=== PATIENT | male | born 1965 | race Caucasian/White ===

== ENCOUNTER 2020-01-22 18:34 | IRF | payer BC, SELFPAY ==
--- NOTE | ~2020-01-22 | XR_ITS ---
EXAMINATION: XR forearm LT 2V DATE: 01/25/2020 22:28 INDICATION: Posterior distal left forearm pain post fall TECHNIQUE: AP an lateral views of the left forearm were obtained. COMPARISON: none FINDINGS: Alignment is normal. No fracture. Joint spaces are normal. Enthesophyte at the olecranon. Soft tissue s are unremarkable. Left elbow joint effusion. IMPRESSION: 1. Negative left forearm radiographs. Reviewed, dictated and finalized at location A.
--- NOTE | 2020-01-22 19:19 | ADMGEN ---
This patient, Florentin Marie, was admitted to [facility] Room 221-01. Patient/family oriented to hospital policies and general routines including ID bracelet, bed and alarms, visiting hours, pain management, procedures, bathroom and other care routines, personal items, smoking policy, room service/diet, and visiting hours. Information on how to activate the Rapid Response Team has been discussed. Patient/Family are encouraged to report perceived risks to care and to ask questions if they do not understand what they are told or what they should do. 183 Patient arrived via ambulance, he is alert and oriented, daughter here. v/s on trip 135/81, p92 r18 sats 100%, ems reported he ate dinner but at present he states he is hungry, given cold sandwich tray
[2020-01-22 20:12] VITALS: BP 132/86; PULSE 94; RESP 18; TEMP 36.6; O2SAT 98
[2020-01-22 20:46] VITALS: BMI 50.9
[2020-01-22] MEDS: ATORVASTATIN 40 MG TABLET 80 MG PO (22:27)
[2020-01-23 05:08] LABS: Basophils Absolute Auto 0.1 K/mm3 (0.0-0.1); Basophils Percent Auto 0.5 % (0.2-1.2); Eosinophils Absolute Auto 0.3 K/mm3 (0-0.3); Hematocrit 44.8 % (42.0-52.0); Hemoglobin 15.6 g/dL (14.0-18.0); Immature Granulocyte Absolute 0.08 K/mm3 (0.00-0.031); Immature Granulocyte Percent A 0.6 % (0-0.5); Lymphocytes Absolute Auto 2.77 K/mm3 (0.9-3.2); Lymphocytes Percent Auto 20.1 % (18.3-44.2); Mean Corpuscular HGB Conc 34.8 g/dl (32-36); Mean Corpuscular Hemoglobin 30.4 pg (26-34); Mean Corpuscular Volume 87.2 fl (80-100); Mean Platelet Volume 10.6 fl (7.4-10.4); Monocytes Absolute Auto 1.5 K/mm3 (0.1-0.6); Monocytes Percent Auto 10.6 % (2.6-8.5); Neutrophils Absolute Auto 9.1 K/mm3 (1.3-6.7); Neutrophils Percent Auto 66.2 % (45.5-73.1); Platelet Count Result 258 k/mm3 (150-375); Red Blood Count 5.14 M/mm3 (4.6-6.20); Red Cell Distribution Width 11.9 % (11.5-14.5); White Blood Count 13.8 K/mm3 (4.5-10.0)
[2020-01-23 05:25] LABS: Anion Gap 9 mmol/L (8-16); Blood Urea Nitrogen 17 mg/dL (9-20); Calcium 8.9 mg/dL (8.4-10.2); Carbon Dioxide 26 mmol/L (22-30); Chloride 104 mmol/L (98-107); Cholesterol 149 mg/dL (0-200); Estimated CRCL calculation 156 ml/min; Estimated Glomerular Filt Rate > 60; Glucose 110 mg/dL (75-110); HDL Direct 36 mg/dL; Potassium 4.3 mmol/L (3.4-5.0); Sodium 139 mmol/L (137-145); Triglycerides 162 mg/dL (<150)
[2020-01-23 05:30] VITALS: BP 108/58; PULSE 76; RESP 18; TEMP 36.6; O2SAT 100
[2020-01-23 05:36] LABS: LDL Cholesterol Direct 91 mg/dL
[2020-01-23] MEDS: ASPIRIN 325 MG ENTERIC TABLET PO (09:32)
[2020-01-23] MEDS: NICOTINE (*PBKC) 21 MG PATCH 1 PATCH TRANSDERM (09:32)
[2020-01-23 09:40] VITALS: PULSE 100; RESP 18; O2SAT 97
[2020-01-23] MEDS: ENOXAPARIN 40 MG/0.4 ML SYRINGE SUB-Q (09:55)
--- NOTE | 2020-01-23 11:00 | PM.IMHP ---
H&P: HPI History of Present Illness Date/Time: 01/23/20 13:33 Chief complaint: Acute CVA Narrative: Florentin Marie is a 54 year old male who is right-handed is admitted Because of the stroke, a right acute hemispheric infarction with left-sided hemiparesis upper extremity much more involved than the lower extremity The patient is a 54-year-old right-handed white male with a past medical history of ureteral lithiasis who presented to [facility] on January 17, 2020 after developing profound left upper extremity weakness mild left lower extremity weakness numbness and tingling to the left side and slurring of the speech. The patient felt a pop on the left side of his neck while doing heavy lifting at work earlier in the day when his symptoms began. Head CT revealed fighting concerning for an acute to subacute infarction in the right middle cerebral artery distribution. Urine drug screen was positive for opioids and methamphetamine all the patient reported not using for years. CT of the cervical spine demonstrated no acute osseous abnormality and mild spondylosis of the cervical spine. X-ray of the left shoulder showed an osseous abnormality and mild acromioclavicular joint osteoarthritis. The patient was given aspirin and transferred to [facility] for further evaluation and treatment. Neurology was consulted and ordered MRI MRA and carotid duplex. MRI was positive for an acute right hemispheric infarction without hemorrhage or significant mass effect. Carotid duplex showed evidence of complete occlusion of the right internal carotid artery and minimal atherosclerotic plaque on the left. Carotid MRA demonstrated very minimal flow within the right internal carotid artery and an essentially functional occlusion of the cervical right carotid artery. Neurology continue the patient on aspirin and introduced a high-intensity statin therapy. Physical examination continues to reveal left-sided weakness, dysarthria with very mild left facial droop and leftward tongue deviation decreased gross motor control impaired balance and decreased safety awareness. He was diagnosed with pre diabetes with hemoglobin A1c of 6.0. The patient is discharged to us on Lovenox for DVT prophylaxis and should continue on this therapy until ambulating proficient Nevaeh reynolds. The patient to follow up with the outpatient vascular neurology after discharge. The patient has not traveled outside the [place] contact with someone who is ill that has traveled outside the use in the past 21 days. The patient has not traveled to an area of the stent is experiencing no transmission of the Coronavirus and has not had close personal contact with anyone that has. Patient does not have fever. The patient is not experiencing lower respiratory symptoms The therapies were initiated at the acute care facility and the patient was transferred to us from [facility] on January 22, 2020 The patient has had no major surgery in the 100 days. Patient has had no falls in the past year. The patient has had no falls with injury in the past year. Past medical history ureteral lithiasis Past surgical history knee surgery Social history, current smoker, used to drink heavily but reportedly has not had a drink and years. He reported no other drugs or supplements. Family history father had stroke brother had stroke prior level of function Prior level function was quite independent in all spheres of activities daily living Current level functions as follows eating is independent, oral care is partial moderate, toileting hygiene is partial moderate, shower bath is partial moderate, upper body supervision, lower bodies partial moderate, footwear is partial moderate, groaning left and right supervision, sit to lying supervision, lying to sitting supervision, [id number] is partial moderate, bed to chair transfers partial moderate, toilet transfers are parti
[2020-01-23 14:00] VITALS: BP 133/75; PULSE 104; RESP 18; TEMP 36.9; O2SAT 98
[2020-01-23 14:15] VITALS: BMI 23.1
[2020-01-23] MEDS: IBUPROFEN 600 MG TABLET PO ×2 (14:35→18:26)
--- NOTE | 2020-01-23 15:27 | RPD ---
INDIVIDUALIZED PLAN OF CARE FOR Florentin Marie Brief Synthesis of Pre-Admission Screen, Post-Admission Evaluation and Therapy Evaluations: The patient presents to rehab with bifrontal acute on chronic bilateral subdural hematoma s/p subdural evacuation. Comorbidities include S/P Sheri holes/evacuation, subdural bleed, allergic rhinitis, benign prostatic hypertrophy, cerebral ventriculomegaly, elevated PSA, hypertension, gastroesophageal reflux disease, gait difficulty, hyperlipidemia, lower back pain, normal pressure hydrocephalus, persistent headaches, pneumocephalus, rectus diastasis, s/p ventriculoperitoneal shunt, type 2 diabetes mellitus, recurrent vasovagal syncope, ventricular premature depolarization, arthritis, obesity, hyponatremia, acute kidney injury related to ATN with episodic hypotension, hyperkalemia, anemia, SIADH, leukocytosis. The patient needs physician monitoring and treatment for postoperative complications of leukocytosis, anemia, acute kidney injury related to ATN with episodic hypotension, headaches, post-operative pain, hypertension, hyponatremia, hyperkalemia, post-operative anemia, monitoring for adverse reactions to new medications, monitoring of infection, and pain control. The patient requires nursing services for frequent neuro checks, anticoagulation therapy, medication management and education, pressure relief and skin care management, monitoring of labs, diabetes management and education, and fall/safety precautions. Deficits include:ADLs, Balance, Endurance,Mobility, Pain Management, ROM, Safety, Strength,Transfers Batt Packer/Case Management for: Discharge Planning and Patient/Family Counseling Physical Therapy: 5 days per week for 90 minutes. Treatments may include: Therapeutic Exercise, Gait Training, Neuromuscular Re-education, Transfer Training, Community Reintegration, Bed Mobility, Patient/Family Education, Wheelchair Mobility Group Therapy/Concurrent Therapy Rationales: -Improve attention span during functional activities in a distracted environment. -Enhance problem solving and/or adequate judgment skills during functional activities in a distracted environment. -Promote increased safety awareness in a distracted environment to reduce fall risk with functional tasks, transfers, and ambulation to allow a more safe, self-sufficient return to the home environment. -Improve dynamic balance skills to promote safety and independence with functional activities in a distracted environment for maximum gain. Occupational Therapy: 5 days per week for 90 minutes. Treatments may include: Therapeutic Exercise, Therapeutic Activity, Cognitive Training, Self-Care Transfer Training, Community Reintegration, Home Management, Patient/Family Education, Wheelchair Mobility Training, Energy Conservation Training Group Therapy/Concurrent Therapy Rationales: -Allow therapist to observe and teach generalization and carry-over of skills learned in individual therapy. -Enhance problem solving and sequencing skills during therapeutic activities in a distracted environment. -Promote increased safety awareness in a realistic setting to reduce fall risk with functional tasks due to visual and verbal distractions. -Increase functional level with ADLs, ADL transfers and use of adaptive equipment through therapeutic activities with others while promoting safety to allow a more safe, self-sufficient return home. Medical Prognosis: Good Anticipated Length of Stay: 12 days Rehab Goals: Eating Goal: 06-Independent Oral Hygiene Goal: 06-Independent Toileting Hygiene Goal: 04-Supervision or Touching Assistance Shower/Bathe Self Goal: 05-Setup or Clean Up Assistance Upper Body Dressing Goal: 05-Setup or Clean Up Assistance Lower Body Dressing Goal: 05-Setup or Clean Up Assistance Putting On/Taking Off Footwear Goal: 06-Independent Rolling Left and Right Goal: 06-Independent Sit to Lying Goal: 06-Independent Lying to Sitting on Side of Bed Goal: 06-Ind
--- NOTE | 2020-01-23 15:43 | RPD ---
INDIVIDUALIZED PLAN OF CARE FOR Florentin Marie Brief Synthesis of Pre-Admission Screen, Post-Admission Evaluation and Therapy Evaluations: The patient presents to rehab with right acute hemispheric infarction. Comorbidities include carotid artery occlusion on the right, dysarthria, pain, pre-diabetes, hyperlipidemia, hypertension.The patient requires physician services for neurology services, medical oversight, and coordination of care. Emotional needs will be monitored as depression is a common sequelae of stroke. The patient needs physician monitoring and treatment of new diabetes diagnosis, monitoring for adverse reactions to new medications, monitoring of infection, and pain control. The patient requires nursing services for frequent neuro checks, anticoagulation therapy, medication management and education, pressure relief and skin care management, monitoring of labs, diabetes management and education, and fall/safety precautions. Deficits include:ADLs, Balance, Endurance, Family Training/Education, Mobility, Pain Management, ROM, Safety, Speech, Strength, Transfers Target Aircraft Controller/Case Management for: Discharge Planning and Patient/Family Counseling Physical Therapy: 5 days per week for 90 minutes. Treatments may include: Therapeutic Exercise, Gait Training, Neuromuscular Re-education, Transfer Training, Community Reintegration, Bed Mobility, Patient/Family Education, Wheelchair Mobility Group Therapy/Concurrent Therapy Rationales: -Improve attention span during functional activities in a distracted environment. -Enhance problem solving and/or adequate judgment skills during functional activities in a distracted environment. -Promote increased safety awareness in a distracted environment to reduce fall risk with functional tasks, transfers, and ambulation to allow a more safe, self-sufficient return to the home environment. -Improve dynamic balance skills to promote safety and independence with functional activities in a distracted environment for maximum gain. Occupational Therapy: 5 days per week for 90 minutes. Treatments may include: Therapeutic Exercise, Therapeutic Activity, Cognitive Training, Self-Care Transfer Training, Community Reintegration, Home Management, Patient/Family Education, Wheelchair Mobility Training, Energy Conservation Training Group Therapy/Concurrent Therapy Rationales: -Allow therapist to observe and teach generalization and carry-over of skills learned in individual therapy. -Enhance problem solving and sequencing skills during therapeutic activities in a distracted environment. -Promote increased safety awareness in a realistic setting to reduce fall risk with functional tasks due to visual and verbal distractions. -Increase functional level with ADLs, ADL transfers and use of adaptive equipment through therapeutic activities with others while promoting safety to allow a more safe, self-sufficient return home. Speech Therapy: To evaluate if needed. Medical Prognosis: Good Anticipated Length of Stay: 12 days Rehab Goals: Eating Goal: 06-Independent Oral Hygiene Goal: 06-Independent Toileting Hygiene Goal: 04-Supervision or Touching Assistance Shower/Bathe Self Goal: 05-Setup or Clean Up Assistance Upper Body Dressing Goal: 05-Setup or Clean Up Assistance Lower Body Dressing Goal: 05-Setup or Clean Up Assistance Putting On/Taking Off Footwear Goal: 06-Independent Rolling Left and Right Goal: 06-Independent Sit to Lying Goal: 06-Independent Lying to Sitting on Side of Bed Goal: 06-Independent Sit to Stand Goal: 06-Independent Chair/[id number]-[id number] Transfer Goal: 06-Independent Toilet Transfer Goal: 04-Supervision or Touching Assistance Car Transfer Goal: 06-Independent Walk 10' Goal: 06-Independent Walk 50' with Two Turns Goal: 06-Independent Walk 150' Goal: 06-Independent Walk 10' on Uneven Surface Goal: 06-Independent 1 Step (Curb) Goal: 06-Independent 4 Steps Goal: 06-Independent 12 Steps Goal Score: 06-Independent
[2020-01-23] MEDS: ALPRAZolam (*CRX) 0.5 MG TABLET PO (18:26)
[2020-01-23 20:00] VITALS: PULSE 97; RESP 18; O2SAT 97
[2020-01-23] MEDS: ATORVASTATIN 40 MG TABLET 80 MG PO (20:36)
[2020-01-23 22:00] VITALS: BP 109/60; PULSE 97; RESP 18; TEMP 36.4; O2SAT 97
[2020-01-24 06:00] VITALS: BP 157/87; PULSE 79; RESP 17; TEMP 36.3; O2SAT 99
[2020-01-24] MEDS: ENOXAPARIN 40 MG/0.4 ML SYRINGE SUB-Q (08:36)
[2020-01-24] MEDS: ASPIRIN 325 MG ENTERIC TABLET PO (08:36)
[2020-01-24] MEDS: NICOTINE (*PBKC) 21 MG PATCH 1 PATCH TRANSDERM (08:36)
[2020-01-24] MEDS: ACETAMINOPHEN 325 MG TABLET 650 MG PO (12:51)
[2020-01-24 14:00] VITALS: BP 142/82; PULSE 93; RESP 18; TEMP 36.7; O2SAT 99
--- NOTE | 2020-01-24 16:26 | WPDNEURORHBP ---
Subjective Date/time seen: 01/24/20 16:26 Interval history: this 54-year-old is here after having a stroke with the moderately severe left-sided hemiparesis he has been abusive to the attending personnel here on the floor however when confronted he says nobody responded to his call because he wanted to urinate and walked on his own without any permission he was relatively calmer when I examined him and I counseled him that he should wait for the personnel to attend to him on the other hand he denies any headache nausea vomiting chest pain shortness of breath fever chills sore Review of Systems Review of Systems: All systems reviewed & are unremarkable except as noted in HPI and below Functional Status Ambulation Ability Ability to Ambulate 10 Feet: Minimum Assistance X 1 Ability to Ambulate 50 Feet With 2 Turns: Minimum Assistance X 1 Ability to Ambulate 150 Feet: Minimum Assistance X 1 Ambulation Assistive Devices: Cane, Bowen Transfers Ability Ability to Transfer In/Out of Chair: Minimum Assistance X 1 Exam Narrative: Exam Narrative: patient is awake and alert well oriented has a little odd affect follows all commands with moderately severe left-sided hemiparesis otherwise the vital signs are stable neck is supple head is normocephalic eyes ear nose throat unremarkable lungs are clear cardiovascular examination is stable abdomen is soft nontender extremities reveal no diff rib deformities Objective Data Vital Signs Vital Signs: Vital Signs - 24 hr 01/23/20 20:00 01/23/20 22:00 01/24/20 06:00 Temperature 36.4 C L 36.3 C L Pulse Rate 97 97 79 Respiratory Rate 18 18 17 Blood Pressure 109/60 157/87 H Pulse Oximetry 97 97 99 01/24/20 14:00 Temperature 36.7 C Pulse Rate 93 Respiratory Rate 18 Blood Pressure 142/82 H Pulse Oximetry 99 Intake/Output Intake/Output: Intake & Output 01/21/20 01/22/20 01/23/20 01/24/20 23:59 23:59 23:59 23:59 Intake Total 960 120 Balance 960 120 Meds/Results Medications: Active Medications Generic Name Dose Route Start Last Admin Trade Name Freq PRN Reason Stop Dose Admin Acetaminophen 650 mg 01/22/20 19:54 01/24/20 12:51 Acetaminophen 325 Mg Tablet PO 650 mg Q4H PRN Administration Pain, Mild Alprazolam 0.5 mg 01/23/20 18:16 01/23/20 18:26 Alprazolam (*Crx) 0.5 Mg Tablet PO 0.5 mg HS PRN Administration Anxiety Aspirin 325 mg 01/23/20 09:00 01/24/20 08:36 Aspirin 325 Mg Enteric Tablet PO 325 mg DAILY DEUCE Administration Atorvastatin Calcium 80 mg 01/22/20 21:00 01/23/20 20:36 Atorvastatin 40 Mg Tablet PO 80 mg HS DEUCE Administration Enoxaparin Sodium 40 mg 01/23/20 09:00 01/24/20 08:36 Enoxaparin 40 Mg/0.4 Ml Syringe SUB-Q 40 mg DAILY DEUCE Administration Ibuprofen 600 mg 01/22/20 19:54 01/23/20 18:26 Ibuprofen 600 Mg Tablet PO 600 mg Q6H PRN Administration Headache Nicotine 1 patch 01/23/20 09:00 01/24/20 08:36 Nicotine (*Pbkc) 21 Mg Patch TRANSDERM 1 patch DAILY DEUCE Administration Polyethylene Glycol 17 gm 01/22/20 19:54 Polyethylene Glycol 3350 17 Gm Powd.Pack PO DAILY PRN Constipation Progress Note: A&P Assessment and Plan (1) Ureterolithiasis: Code(s): N20.1 - Calculus of ureter Status: Acute (2) Prediabetes: Code(s): R73.03 - Prediabetes Status: Acute (3) Right carotid artery occlusion: Code(s): I65.21 - Occlusion and stenosis of right carotid artery Status: Acute (4) Left hemiparesis: Code(s): G81.94 - Hemiplegia, unspecified affecting left nondominant side Status: Acute (5) Stroke: Code(s): I63.9 - Cerebral infarction, unspecified Status: Acute (6) Medical non-compliance: Code(s): Z91.19 - Patient's noncompliance with other medical treatment and regimen Status: Acute Additional Plan I counseled the patient about following the instructions as per the attend
[2020-01-24] MEDS: ALPRAZolam (*CRX) 0.5 MG TABLET PO (18:42)
--- NOTE | 2020-01-24 19:48 | PC.NURSE ---
at 1800 patient began to c/o feeling his heart beat out of his chest B/P 135/82, P102 and O2 sats 96%. He has no diaphoresis and no SOB. continued to monitor, at 1830 he was given a xanax for anxiety. At this time he is resting in bed, states his chest feels better but would like something to help him sleep. report to night nurse
[2020-01-24 20:00] VITALS: PULSE 93; RESP 18; O2SAT 99
[2020-01-24] MEDS: ATORVASTATIN 40 MG TABLET 80 MG PO (21:35)
[2020-01-24 22:00] VITALS: BP 145/82; PULSE 99; RESP 16; TEMP 36.8; O2SAT 95
[2020-01-24 22:24] VITALS: TEMP 36.7
[2020-01-24] MEDS: IBUPROFEN 600 MG TABLET PO (22:24)
[2020-01-25 05:37] LABS: Basophils Absolute Auto 0.1 K/mm3 (0.0-0.1); Basophils Percent Auto 0.5 % (0.2-1.2); Eosinophils Absolute Auto 0.3 K/mm3 (0-0.3); Eosinophils Percent Auto 2.6 % (0-4.4); Hematocrit 46.8 % (42.0-52.0); Hemoglobin 15.8 g/dL (14.0-18.0); Immature Granulocyte Absolute 0.06 K/mm3 (0.00-0.031); Immature Granulocyte Percent A 0.5 % (0-0.5); Lymphocytes Absolute Auto 2.76 K/mm3 (0.9-3.2); Lymphocytes Percent Auto 24.3 % (18.3-44.2); Mean Corpuscular HGB Conc 33.8 g/dl (32-36); Mean Corpuscular Hemoglobin 30.5 pg (26-34); Mean Corpuscular Volume 90.3 fl (80-100); Mean Platelet Volume 11.2 fl (7.4-10.4); Monocytes Absolute Auto 1.2 K/mm3 (0.1-0.6); Monocytes Percent Auto 10.9 % (2.6-8.5); Neutrophils Absolute Auto 6.9 K/mm3 (1.3-6.7); Neutrophils Percent Auto 61.2 % (45.5-73.1); Platelet Count Result 248 k/mm3 (150-375); Red Blood Count 5.18 M/mm3 (4.6-6.20); Red Cell Distribution Width 12.1 % (11.5-14.5); White Blood Count 11.3 K/mm3 (4.5-10.0)
[2020-01-25 06:00] VITALS: BP 133/71; PULSE 69; RESP 16; TEMP 36.9; O2SAT 98
[2020-01-25] MEDS: IBUPROFEN 600 MG TABLET PO ×2 (06:24→21:42)
[2020-01-25 09:15] VITALS: PULSE 68; RESP 16; O2SAT 98
[2020-01-25] MEDS: ENOXAPARIN 40 MG/0.4 ML SYRINGE SUB-Q (09:17)
[2020-01-25] MEDS: NICOTINE (*PBKC) 21 MG PATCH 1 PATCH TRANSDERM (09:17)
[2020-01-25] MEDS: ASPIRIN 325 MG ENTERIC TABLET PO (09:18)
[2020-01-25 14:00] VITALS: BP 149/54; PULSE 97; RESP 20; TEMP 36.5; O2SAT 97
--- NOTE | 2020-01-25 15:26 | WPDNEURORHBP ---
Subjective Date/time seen: 01/25/20 15:26 Interval history: Mr. Marie continues to have little attitude likewise his girlfriend who is present in the room also has a similar attitude and I suspect that the of a conflict between themselves she is not wearing a mask which the hospital requires although he is wearing a mask she was wanting to take him out for a fresh air which she did earlier this morning he had some discomfort to the chest however I suspect it is not probably cardiac in origin however I have ordered the EKG stat based on that I may want to do some troponin levels he also fell while he was getting from chair to his bed however did not hurt himself he said it hurts my pride At the time of this examination he denies any headache nausea vomiting chest pain shortness of breath fever chills sore throat and his girlfriend is asking for him to be some antidepressant week it is clearly is depressed will continue using the Xanax for him to take at night for sleep Review of Systems Review of Systems: All systems reviewed & are unremarkable except as noted in HPI and below Functional Status Ambulation Ability Ability to Ambulate 10 Feet: Minimum Assistance X 1 Ability to Ambulate 50 Feet With 2 Turns: Minimum Assistance X 1 Ability to Ambulate 150 Feet: Minimum Assistance X 1 Ambulation Assistive Devices: Cane, Bowen Transfers Ability Ability to Transfer In/Out of Chair: Minimum Assistance X 1 Exam Narrative: Exam Narrative: he is awake and alert well oriented not any distress vital signs are stable eyes ear nose throat normal neck is supple lungs are clear cardiovascular examination negative abdomen soft not tender he comes across as a person whose always a G and uncomfortable and at times angry his left bowen paresis is improving extremities will order formal Objective Data Vital Signs Vital Signs: Vital Signs - 24 hr 01/24/20 20:00 01/24/20 22:00 01/24/20 22:24 Temperature 36.8 C 36.7 C Pulse Rate 93 99 Respiratory Rate 18 16 Blood Pressure 145/82 H Pulse Oximetry 99 95 01/25/20 06:00 01/25/20 09:15 01/25/20 14:00 Temperature 36.9 C 36.5 C Pulse Rate 69 68 97 Respiratory Rate 16 16 20 Blood Pressure 133/71 149/54 H Pulse Oximetry 98 98 97 Intake/Output Intake/Output: Intake & Output 10/1501/23/20 01/24/20 01/25/20 23:59 23:59 23:59 23:59 Intake Total 960 120 0 Balance 960 120 0 Meds/Results Medications: Active Medications Generic Name Dose Route Start Last Admin Trade Name Freq PRN Reason Stop Dose Admin Acetaminophen 650 mg 01/22/20 19:54 01/24/20 12:51 Acetaminophen 325 Mg Tablet PO 650 mg Q4H PRN Administration Pain, Mild Alprazolam 0.5 mg 01/23/20 18:16 01/24/20 18:42 Alprazolam (*Crx) 0.5 Mg Tablet PO 0.5 mg HS PRN Administration Anxiety Aspirin 325 mg 01/23/20 09:00 01/25/20 09:18 Aspirin 325 Mg Enteric Tablet PO 325 mg DAILY DEUCE Administration Atorvastatin Calcium 80 mg 01/22/20 21:00 01/24/20 21:35 Atorvastatin 40 Mg Tablet PO 80 mg HS DEUCE Administration Enoxaparin Sodium 40 mg 01/23/20 09:00 01/25/20 09:17 Enoxaparin 40 Mg/0.4 Ml Syringe SUB-Q 40 mg DAILY DEUCE Administration Escitalopram Oxalate 10 mg 01/25/20 09:00 Escitalopram Oxalate 10 Mg Tablet PO QAM DEUCE Ibuprofen 600 mg 01/22/20 19:54 01/25/20 06:24 Ibuprofen 600 Mg Tablet PO 600 mg Q6H PRN Administration Headache Nicotine 1 patch 01/23/20 09:00 01/25/20 09:17 Nicotine (*Pbkc) 21 Mg Patch TRANSDERM 1 patch DAILY DEUCE Administration Polyethylene Glycol 17 gm 01/22/20 19:54 Polyethylene Glycol 3350 17 Gm Powd.Pack PO DAILY PRN Constipation Labs Labs: Laboratory Results - last 24 hr 01/25/20 04:44 WBC 11.3 H RBC 5.18 Hgb 15.8 Hct 46.8 MCV 90.3 MCH 30.5 MCHC 33.8 RDW 12.1 Plt Count 248 MPV 11.2 H Immature Gran % (Auto) 0.5 Neut % (Auto) 61.2 Lymph % (Auto)
[2020-01-25 17:02] VITALS: BP 148/96; PULSE 92; RESP 18; TEMP 36.7; O2SAT 99
--- NOTE | 2020-01-25 18:52 | ECG_ITS ---
Measurements Intervals [place] Rate: 97 P: 83 CO: 141 QRS: -30 QRSD: 108 T: 77 QT: 345 QTc: 439 Interpretive Statements SINUS RHYTHM LEFT AXIS DEVIATION INCOMPLETE RIGHT BUNDLE BRANCH BLOCK LEFT VENTRICULAR HYPERTROPHY AND ST-T CHANGE MINIMAL Q WAVES- ANTEROLAT/HIGH LAT LEADS BASELINE ARTIFACT- I, II, AVR, AVL, V3 BORDERLINE ECG Electronically Signed On 01-25-2020 20:41:19 CDT by Donnie Villegas D.O.
[2020-01-25] MEDS: ALPRAZolam (*CRX) 0.5 MG TABLET PO (19:32)
[2020-01-25] MEDS: ATORVASTATIN 40 MG TABLET 80 MG PO (19:32)
[2020-01-25 22:00] VITALS: BP 149/92; PULSE 91; RESP 17; TEMP 36.2; O2SAT 98
[2020-01-26 06:00] VITALS: BP 149/84; PULSE 73; RESP 18; TEMP 36.1; O2SAT 97
[2020-01-26] MEDS: ASPIRIN 325 MG ENTERIC TABLET PO (08:35)
[2020-01-26] MEDS: ESCITALOPRAM OXALATE 10 MG TABLET PO (08:35)
[2020-01-26] MEDS: NICOTINE (*PBKC) 21 MG PATCH 1 PATCH TRANSDERM (08:35)
[2020-01-26] MEDS: ENOXAPARIN 40 MG/0.4 ML SYRINGE SUB-Q (08:36)
--- NOTE | 2020-01-26 09:02 | PCPTNOTE ---
Florentin Marie was evaluated for a nisha cane on 01/26/2020 by this physical therapist. The nisha cane will resolve patient's mobility limitations and will be used for ADL's within the home. The patient can safely use the nisha cane. ?The nisha cane will resolve the patient?s mobility deficits, including decreased L LE strength, incoordination, and decreased balance.
[2020-01-26] MEDS: HYDROcodone/acetaminophen (*CRX) 7.5-325 MG TABLET 1 TAB PO (10:30)
[2020-01-26 14:00] VITALS: BP 152/79; PULSE 81; RESP 20; TEMP 36.5; O2SAT 98
[2020-01-26 20:00] VITALS: O2SAT 94
[2020-01-26] MEDS: ATORVASTATIN 40 MG TABLET 80 MG PO (20:02)
[2020-01-26] MEDS: IBUPROFEN 600 MG TABLET PO (20:05)
[2020-01-26] MEDS: ALPRAZolam (*CRX) 0.5 MG TABLET PO (20:06)
[2020-01-26 20:43] VITALS: BP 145/71; PULSE 87; RESP 16; TEMP 36.3; O2SAT 94
[2020-01-27] MEDS: IBUPROFEN 600 MG TABLET PO (03:48)
[2020-01-27 04:57] VITALS: BP 127/76; PULSE 78; RESP 16; TEMP 36.7; O2SAT 100
[2020-01-27] MEDS: HYDROcodone/acetaminophen (*CRX) 7.5-325 MG TABLET 1 TAB PO ×3 (05:10→19:53)
[2020-01-27] MEDS: ASPIRIN 325 MG ENTERIC TABLET PO (09:41)
[2020-01-27] MEDS: NICOTINE (*PBKC) 21 MG PATCH 1 PATCH TRANSDERM (09:41)
[2020-01-27] MEDS: ESCITALOPRAM OXALATE 10 MG TABLET PO (09:41)
--- NOTE | 2020-01-27 12:13 | WPDNEURORHBP ---
Subjective Date/time seen: 01/27/20 12:13 Interval history: this 54-year-old gentleman is here after having had the stroke with left-sided a moderately severe hemiparesis along with left-sided neglect and most likely left-sided visual field defect. He has relatively more cooperative and gets a good report from the nursing occupational therapist and also the physical therapy he is walking 185 feet and 14 stairs of course walking is with a bowen cane The patient is forearm pain is controlled with the medications the x-rays are negative he denies any headache nausea vomiting chest pain shortness of breath fever chills sore throat Review of Systems Review of Systems: All systems reviewed & are unremarkable except as noted in HPI and below Functional Status Ambulation Ability Ability to Ambulate 10 Feet: Minimum Assistance X 1 Ability to Ambulate 50 Feet With 2 Turns: Minimum Assistance X 1 Ability to Ambulate 150 Feet: Minimum Assistance X 1 Ambulation Assistive Devices: Cane, Bowen Transfers Ability Ability to Transfer In/Out of Chair: Contact Guard Exam Narrative: Exam Narrative: the patient is awake alert well oriented not any distress has moderate left-sided hemiparesis needing assistance all the activities daily living and also left-sided and neglect. Overall he is improving eyes ear nose throat normal neck is supple lungs are clear cardiovascular examination is stable abdomen soft tender extremities well no deformities Objective Data Vital Signs Vital Signs: Vital Signs - 24 hr 01/26/20 14:00 01/26/20 20:00 01/26/20 20:43 Temperature 36.5 C 36.3 C L Pulse Rate 81 87 Respiratory Rate 20 16 Blood Pressure 152/79 H 145/71 H Pulse Oximetry 98 94 94 01/27/20 04:57 Temperature 36.7 C Pulse Rate 78 Respiratory Rate 16 Blood Pressure 127/76 Pulse Oximetry 100 Intake/Output Intake/Output: Intake & Output 01/24/20 01/25/20 01/26/20 01/27/20 23:59 23:59 23:59 23:59 Intake Total 120 0 480 240 Balance 120 0 480 240 Meds/Results Medications: Active Medications Generic Name Dose Route Start Last Admin Trade Name Freq PRN Reason Stop Dose Admin Acetaminophen 650 mg 01/22/20 19:54 01/24/20 12:51 Acetaminophen 325 Mg Tablet PO 650 mg Q4H PRN Administration Pain, Mild Hydrocodone Bitart/Acetaminophen 1 tab 01/26/20 09:50 01/27/20 11:35 Hydrocodone/Acetaminophen (*Crx) 7.5-325 Mg Tablet PO 1 tab Q6H PRN Administration Pain Rated 7-10 Alprazolam 0.5 mg 01/23/20 18:16 01/26/20 20:06 Alprazolam (*Crx) 0.5 Mg Tablet PO 0.5 mg HS PRN Administration Anxiety Aspirin 325 mg 01/23/20 09:00 01/27/20 09:41 Aspirin 325 Mg Enteric Tablet PO 325 mg DAILY DEUCE Administration Atorvastatin Calcium 80 mg 01/22/20 21:00 01/26/20 20:02 Atorvastatin 40 Mg Tablet PO 80 mg HS DEUCE Administration Escitalopram Oxalate 10 mg 01/26/20 09:00 01/27/20 09:41 Escitalopram Oxalate 10 Mg Tablet PO 10 mg QAM DEUCE Administration Ibuprofen 600 mg 01/22/20 19:54 01/27/20 03:48 Ibuprofen 600 Mg Tablet PO 600 mg Q6H PRN Administration Headache Nicotine 1 patch 01/23/20 09:00 01/27/20 09:41 Nicotine (*Pbkc) 21 Mg Patch TRANSDERM 1 patch DAILY DEUCE Administration Polyethylene Glycol 17 gm 01/22/20 19:54 Polyethylene Glycol 3350 17 Gm Powd.Pack PO DAILY PRN Constipation Radiology Results: ITS Impressions Forearm X-Ray 01/26/20 07:08 IMPRESSION: 1. Negative left forearm radiographs. Progress Note: A&P Assessment and Plan (1) Medical non-compliance: Code(s): Z91.19 - Patient's noncompliance with other medical treatment and regimen Status: Acute (2) Ureterolithiasis: Code(s): N20.1 - Calculus of ureter Status: Acute (3) Prediabetes: Code(s): R73.03 - Prediabetes Status: Acute (4) Right carotid artery occlusion: Code(s): I65.21 - Occlusion and stenosis of ri
[2020-01-27 14:00] VITALS: BP 132/64; PULSE 80; RESP 20; TEMP 36.3; O2SAT 100
[2020-01-27] MEDS: ALPRAZolam (*CRX) 0.5 MG TABLET PO (19:54)
[2020-01-27] MEDS: ATORVASTATIN 40 MG TABLET 80 MG PO (19:54)
[2020-01-27 20:00] VITALS: O2SAT 96
[2020-01-27 22:00] VITALS: BP 143/92; PULSE 74; RESP 18; TEMP 36.7; O2SAT 96
[2020-01-28 06:00] VITALS: BP 142/87; PULSE 75; RESP 18; TEMP 36.8; O2SAT 93
[2020-01-28] MEDS: ESCITALOPRAM OXALATE 10 MG TABLET PO (09:12)
[2020-01-28] MEDS: ASPIRIN 325 MG ENTERIC TABLET PO (09:12)
[2020-01-28] MEDS: NICOTINE (*PBKC) 21 MG PATCH 1 PATCH TRANSDERM (09:15)
[2020-01-28 09:36] VITALS: BP 130/76; PULSE 100; O2SAT 94
[2020-01-28] MEDS: HYDROcodone/acetaminophen (*CRX) 7.5-325 MG TABLET 1 TAB PO (10:21)
--- NOTE | 2020-01-28 11:54 | WPDNEURORHBP ---
Subjective Date/time seen: 01/28/20 11:54 Interval history: this 54-year-old gentleman is here after having had a stroke and left-sided hemiparesis in the initial few days he was quite noncompliant in pursuing the therapy always wanted to go home but in past couple of days he has been relatively calmed and engage in therapy but still wants to go home every day when I walk in and spite of all the instructions and the reasons for him to be here which have been discussed both the tele conference and also by this examiner repeatedly he still wants to go home on the other and he is not any distress he denies any headache nausea vomiting chest pain shortness of breath fever chills or sore throat periodically complains of some dizziness however stable vital signs and the the x-rays of the left arm when he fell are negative Review of Systems Review of Systems: All systems reviewed & are unremarkable except as noted in HPI and below Functional Status Ambulation Ability Ability to Ambulate 10 Feet: Moderate Assistance X 1 Ability to Ambulate 50 Feet With 2 Turns: Contact Guard Ability to Ambulate 150 Feet: Contact Guard Ambulation Assistive Devices: Cane, Bowen Transfers Ability Ability to Transfer In/Out of Chair: Contact Guard Exam Narrative: Exam Narrative: the patient is awake and alert well oriented time place and person is not any distress has stable vital signs eyes ear nose throat normal neck is supple lungs are clear cardiovascular examination negative abdomen soft nontender extremities reveal no deformities he does have evidence of the left-sided hemiparesis which is improving and his walking of quite a bit with the bowen cane Objective Data Vital Signs Vital Signs: Vital Signs - 24 hr 01/27/20 14:00 01/27/20 20:00 01/27/20 22:00 Temperature 36.3 C L 36.7 C Pulse Rate 80 74 Respiratory Rate 20 18 Blood Pressure 132/64 143/92 H Pulse Oximetry 100 96 96 01/28/20 06:00 Temperature 36.8 C Pulse Rate 75 Respiratory Rate 18 Blood Pressure 142/87 H Pulse Oximetry 93 Intake/Output Intake/Output: Intake & Output 01/25/20 01/26/20 01/27/20 01/28/20 23:59 23:59 23:59 23:59 Intake Total 0 480 720 240 Balance 0 480 720 240 Meds/Results Medications: Active Medications Generic Name Dose Route Start Last Admin Trade Name Freq PRN Reason Stop Dose Admin Acetaminophen 650 mg 01/22/20 19:54 01/24/20 12:51 Acetaminophen 325 Mg Tablet PO 650 mg Q4H PRN Administration Pain, Mild Hydrocodone Bitart/Acetaminophen 1 tab 01/26/20 09:50 01/28/20 10:21 Hydrocodone/Acetaminophen (*Crx) 7.5-325 Mg Tablet PO 1 tab Q6H PRN Administration Pain Rated 7-10 Alprazolam 0.5 mg 01/23/20 18:16 01/27/20 19:54 Alprazolam (*Crx) 0.5 Mg Tablet PO 0.5 mg HS PRN Administration Anxiety Aspirin 325 mg 01/23/20 09:00 01/28/20 09:12 Aspirin 325 Mg Enteric Tablet PO 325 mg DAILY DEUCE Administration Atorvastatin Calcium 80 mg 01/22/20 21:00 01/27/20 19:54 Atorvastatin 40 Mg Tablet PO 80 mg HS DEUCE Administration Escitalopram Oxalate 10 mg 01/26/20 09:00 01/28/20 09:12 Escitalopram Oxalate 10 Mg Tablet PO 10 mg QAM DEUCE Administration Ibuprofen 600 mg 01/22/20 19:54 01/27/20 03:48 Ibuprofen 600 Mg Tablet PO 600 mg Q6H PRN Administration Headache Nicotine 1 patch 01/23/20 09:00 01/28/20 09:15 Nicotine (*Pbkc) 21 Mg Patch TRANSDERM 1 patch DAILY DEUCE Administration Polyethylene Glycol 17 gm 01/22/20 19:54 Polyethylene Glycol 3350 17 Gm Powd.Pack PO DAILY PRN Constipation Radiology Results: ITS Impressions Forearm X-Ray 01/26/20 07:08 IMPRESSION: 1. Negative left forearm radiographs. Progress Note: A&P Assessment and Plan (1) Medical non-compliance: Code(s): Z91.19 - Patient's noncompliance with other medical treatment and regimen Status: Acute (2) Ureterolithiasis: Code(s): N20.1 -
--- NOTE | 2020-01-28 13:03 | PCNFU ---
Nutrition Follow-Up Complete: No nutrition diagnosis at this time. Patient to consume 75% of meals or greater. Goal: in progress, improved. Pt current nutrition is heart healthy diet, which is appropriate. Nutrition recommendation: continue to abide by heart healthy dietary guidelines following discharge. Last recorded weight is 81.647 kg, recommend updated weight. Bowel Motility: nurse spreadsheet last documented BM on 01/25. Labs Reviewed: Hgb (15.8), Hct (46.8), WBC (13.8), TG (162) Meds Noted: [place], Ativan, Lexapro, Miralax Additional Notes: Integumentary integrity is WNL Follow up in 5 days.
--- NOTE | 2020-01-28 13:18 | PCNSR ---
On 01/28/20, the student, Dary Gee, provided care and completed [facility] documentation on this patient. I have reviewed the student's documentation and agree with the findings.
[2020-01-28 14:00] VITALS: BP 105/62; PULSE 89; RESP 18; TEMP 37; O2SAT 97
--- NOTE | 2020-01-28 17:32 | PCPTNOTE ---
At end of session at 14:26 patient stated wanting to go outside with girlfriend. Therapist educated patient and patient's girlfriend patient must inform R.N., stay in wheelchair at all times and reminded patient of smoke free campus policy here at hospital. Therapist informed R.N.
[2020-01-28] MEDS: ATORVASTATIN 40 MG TABLET 80 MG PO (21:02)
[2020-01-28] MEDS: ALPRAZolam (*CRX) 0.5 MG TABLET PO (21:06)
[2020-01-28 22:00] VITALS: BP 127/64; PULSE 71; RESP 18; TEMP 36.6; O2SAT 92
[2020-01-29 06:00] VITALS: BP 134/67; PULSE 67; RESP 14; TEMP 36.5; O2SAT 98
[2020-01-29] MEDS: ASPIRIN 325 MG ENTERIC TABLET PO (08:39)
[2020-01-29] MEDS: ESCITALOPRAM OXALATE 10 MG TABLET PO (08:39)
[2020-01-29] MEDS: NICOTINE (*PBKC) 21 MG PATCH 1 PATCH TRANSDERM (08:39)
[2020-01-29 14:00] VITALS: BP 157/79; PULSE 83; RESP 16; TEMP 36.5; O2SAT 100
[2020-01-29] MEDS: ALPRAZolam (*CRX) 0.5 MG TABLET PO (20:22)
[2020-01-29] MEDS: ATORVASTATIN 40 MG TABLET 80 MG PO (20:22)
[2020-01-29 21:31] VITALS: BP 143/87; PULSE 86; RESP 16; TEMP 36.8; O2SAT 100
--- NOTE | 2020-01-30 05:11 | PC.NURSE ---
01/30/20 at 0500--patient refused to have labs drawn this morning. TDialRN
[2020-01-30 06:00] VITALS: BP 125/52; PULSE 71; RESP 20; TEMP 36.6; O2SAT 94
[2020-01-30] MEDS: ESCITALOPRAM OXALATE 10 MG TABLET PO (09:42)
[2020-01-30] MEDS: ASPIRIN 325 MG ENTERIC TABLET PO (09:42)
[2020-01-30] MEDS: NICOTINE (*PBKC) 21 MG PATCH 1 PATCH TRANSDERM (09:42)
[2020-01-30] MEDS: ALPRAZolam (*CRX) 0.5 MG TABLET PO ×2 (09:42→20:39)
[2020-01-30 10:25] LABS: Basophils Percent Auto 0.4 % (0.2-1.2); Eosinophils Absolute Auto 0.2 K/mm3 (0-0.3); Eosinophils Percent Auto 1.9 % (0-4.4); Hematocrit 46.2 % (42.0-52.0); Hemoglobin 15.8 g/dL (14.0-18.0); Immature Granulocyte Absolute 0.01 K/mm3 (0.00-0.031); Immature Granulocyte Percent A 0.1 % (0-0.5); Lymphocytes Absolute Auto 2.01 K/mm3 (0.9-3.2); Lymphocytes Percent Auto 20.3 % (18.3-44.2); Mean Corpuscular HGB Conc 34.2 g/dl (32-36); Mean Corpuscular Hemoglobin 30.3 pg (26-34); Mean Corpuscular Volume 88.5 fl (80-100); Mean Platelet Volume 10.6 fl (7.4-10.4); Monocytes Percent Auto 10.1 % (2.6-8.5); Neutrophils Absolute Auto 6.7 K/mm3 (1.3-6.7); Neutrophils Percent Auto 67.2 % (45.5-73.1); Platelet Count Result 285 k/mm3 (150-375); Red Blood Count 5.22 M/mm3 (4.6-6.20); Red Cell Distribution Width 11.9 % (11.5-14.5); White Blood Count 9.9 K/mm3 (4.5-10.0)
[2020-01-30 10:36] LABS: Anion Gap 6 mmol/L (8-16); Blood Urea Nitrogen 19 mg/dL (9-20); Calcium 9.3 mg/dL (8.4-10.2); Carbon Dioxide 33 mmol/L (22-30); Chloride 102 mmol/L (98-107); Estimated CRCL calculation 105 ml/min; Estimated Glomerular Filt Rate > 60; Glucose 102 mg/dL (75-110); Potassium 4.9 mmol/L (3.4-5.0); Sodium 141 mmol/L (137-145)
--- NOTE | 2020-01-30 10:41 | WPDNEURORHBP ---
Subjective Date/time seen: 01/30/20 10:41 Interval history: this 54-year-old gentleman is here after having a stroke with left-sided hemiparesis from which he is improving he is anxious and suffers from anxiety and wanted his Xanax to be increased to twice a day which I reacting it did telling him that I will not be able to give large amount of the medication post discharge and he has to sick this from the primary care physician and/or the neurologist who had seen him at the other hospital which is [facility] Review of Systems Review of Systems: All systems reviewed & are unremarkable except as noted in HPI and below Functional Status Ambulation Ability Ability to Ambulate 10 Feet: Standby Assistance Ability to Ambulate 50 Feet With 2 Turns: Standby Assistance Ability to Ambulate 150 Feet: Contact Guard Ambulation Assistive Devices: Cane, Bowen Transfers Ability Ability to Transfer In/Out of Chair: Standby Assistance Exam Narrative: Exam Narrative: patient is awake alert always has an attitude and angry at something or otherwise tell me this examiner without any provocation that I am here to make money I told him that I do not want to argue with the usual and he said you going to lose any weight it was rather upsetting for this examiner however since he is my patient I did not talk to him any further and I told him that I will treat your anxiety and I am here to take care of few the best I can He otherwise is stable always wants to go home and feels that he can go home although he still has deficit and need the physical therapy of compression therapy and gait training he denies any headache nausea vomiting chest pain shortness of breath fever chills sore throat Eyes ears nose throat normal neck is supple lungs are clear cardiovascular examination is negative abdomen soft nontender extremities we will inform TS Objective Data Vital Signs Vital Signs: Vital Signs - 24 hr 01/29/20 14:00 01/29/20 21:31 01/30/20 06:00 Temperature 36.5 C 36.8 C 36.6 C Pulse Rate 83 86 71 Respiratory Rate 16 16 20 Blood Pressure 157/79 H 143/87 H 125/52 L Pulse Oximetry 100 100 94 Intake/Output Intake/Output: Intake & Output 01/27/20 01/28/20 01/29/20 01/30/20 23:59 23:59 23:59 23:59 Intake Total 720 480 360 240 Balance 720 480 360 240 Meds/Results Medications: Active Medications Generic Name Dose Route Start Last Admin Trade Name Freq PRN Reason Stop Dose Admin Acetaminophen 650 mg 01/22/20 19:54 01/24/20 12:51 Acetaminophen 325 Mg Tablet PO 650 mg Q4H PRN Administration Pain, Mild Hydrocodone Bitart/Acetaminophen 1 tab 01/26/20 09:50 01/28/20 10:21 Hydrocodone/Acetaminophen (*Crx) 7.5-325 Mg Tablet PO 1 tab Q6H PRN Administration Pain Rated 7-10 Alprazolam 0.5 mg 01/30/20 09:17 01/30/20 09:42 Alprazolam (*Crx) 0.5 Mg Tablet PO 0.5 mg BID PRN Administration Anxiety Aspirin 325 mg 01/23/20 09:00 01/30/20 09:42 Aspirin 325 Mg Enteric Tablet PO 325 mg DAILY DEUCE Administration Atorvastatin Calcium 80 mg 01/22/20 21:00 01/29/20 20:22 Atorvastatin 40 Mg Tablet PO 80 mg HS DEUCE Administration Escitalopram Oxalate 10 mg 01/26/20 09:00 01/30/20 09:42 Escitalopram Oxalate 10 Mg Tablet PO 10 mg QAM DEUCE Administration Ibuprofen 600 mg 01/22/20 19:54 01/27/20 03:48 Ibuprofen 600 Mg Tablet PO 600 mg Q6H PRN Administration Headache Nicotine 1 patch 01/23/20 09:00 01/30/20 09:42 Nicotine (*Pbkc) 21 Mg Patch TRANSDERM 1 patch DAILY DEUCE Administration Ondansetron HCl 4 mg 01/29/20 10:05 Ondansetron Hcl Odt 4 Mg Tablet PO Q6H PRN Nausea And Vomiting Polyethylene Glycol 17 gm 01/22/20 19:54 Polyethylene Glycol 3350 17 Gm Powd.Pack PO DAILY PRN Constipation Radiology Results: ITS Impressions Forearm X-Ray 01/26/20 07:08 IMPRESSION: 1. Negative left forearm radiographs.
[2020-01-30 14:00] VITALS: BP 133/80; PULSE 98; RESP 18; TEMP 37.1; O2SAT 98
[2020-01-30] MEDS: IBUPROFEN 600 MG TABLET PO (14:24)
[2020-01-30] MEDS: ATORVASTATIN 40 MG TABLET 80 MG PO (20:38)
[2020-01-30 20:50] VITALS: BP 124/61; PULSE 85; RESP 16; TEMP 36.8; O2SAT 94
[2020-01-30] MEDS: HYDROcodone/acetaminophen (*CRX) 7.5-325 MG TABLET 1 TAB PO (21:35)
[2020-01-31 06:00] VITALS: BP 131/65; PULSE 81; RESP 18; TEMP 36.7; O2SAT 95
[2020-01-31 08:00] VITALS: PULSE 81; RESP 18; O2SAT 95
[2020-01-31] MEDS: ASPIRIN 325 MG ENTERIC TABLET PO (08:35)
[2020-01-31] MEDS: ESCITALOPRAM OXALATE 10 MG TABLET PO (08:35)
[2020-01-31] MEDS: ALPRAZolam (*CRX) 0.5 MG TABLET PO ×2 (08:35→19:54)
[2020-01-31] MEDS: NICOTINE (*PBKC) 21 MG PATCH 1 PATCH TRANSDERM (08:35)
--- NOTE | 2020-01-31 13:40 | WPDNEURORHBP ---
Subjective Date/time seen: 01/31/20 13:40 54 years old right-handed male with a right acute hemispheric stroke and clinical left hemiparesis in addition to the comorbid condition of current everyday smoker former drinker urine test positive for opioids and meth amphetamine at present CBC with mild leukocytosis BMP normal and triglycerides 162 receiving aspirin 325 mg daily with atorvastatin 80 mg daily also Nicoderm patch and citalopram 10 mg daily Review of Systems Review of Systems: All systems reviewed & are unremarkable except as noted in HPI and below Functional Status Ambulation Ability Ability to Ambulate 10 Feet: Contact Guard Ability to Ambulate 50 Feet With 2 Turns: Contact Guard Ability to Ambulate 150 Feet: Contact Guard Ambulation Assistive Devices: Cane, Bowen Transfers Ability Ability to Transfer In/Out of Chair: Standby Assistance Exam Narrative: Exam Narrative: continues to be anxious awake alert in no obvious acute distress head normocephalic, ear nose throat examination normal, heart regular with no murmur, lungs clear with no rhonchi or crepitation, abdomen is soft with no organomegaly, and neurological examination essentially unchanged Objective Data Vital Signs Vital Signs: Vital Signs - 24 hr 01/30/20 14:00 01/30/20 20:50 01/31/20 06:00 Temperature 37.1 C 36.8 C 36.7 C Pulse Rate 98 85 81 Respiratory Rate 18 16 18 Blood Pressure 133/80 124/61 131/65 Pulse Oximetry 98 94 95 01/31/20 08:00 Temperature Pulse Rate 81 Respiratory Rate 18 Blood Pressure Pulse Oximetry 95 Intake/Output Intake/Output: Intake & Output 01/28/20 01/29/20 01/30/20 01/31/20 23:59 23:59 23:59 23:59 Intake Total 480 360 960 340 Balance 480 360 960 340 Meds/Results Medications: Active Medications Generic Name Dose Route Start Last Admin Trade Name Freq PRN Reason Stop Dose Admin Acetaminophen 650 mg 01/22/20 19:54 01/24/20 12:51 Acetaminophen 325 Mg Tablet PO 650 mg Q4H PRN Administration Pain, Mild Hydrocodone Bitart/Acetaminophen 1 tab 01/26/20 09:50 01/30/20 21:35 Hydrocodone/Acetaminophen (*Crx) 7.5-325 Mg Tablet PO 1 tab Q6H PRN Administration Pain Rated 7-10 Alprazolam 0.5 mg 01/30/20 09:17 01/31/20 08:35 Alprazolam (*Crx) 0.5 Mg Tablet PO 0.5 mg BID PRN Administration Anxiety Aspirin 325 mg 01/23/20 09:00 01/31/20 08:35 Aspirin 325 Mg Enteric Tablet PO 325 mg DAILY DEUCE Administration Atorvastatin Calcium 80 mg 01/22/20 21:00 01/30/20 20:38 Atorvastatin 40 Mg Tablet PO 80 mg HS DEUCE Administration Escitalopram Oxalate 10 mg 01/26/20 09:00 01/31/20 08:35 Escitalopram Oxalate 10 Mg Tablet PO 10 mg QAM DEUCE Administration Ibuprofen 600 mg 01/22/20 19:54 01/30/20 14:24 Ibuprofen 600 Mg Tablet PO 600 mg Q6H PRN Administration Headache Nicotine 1 patch 01/23/20 09:00 01/31/20 08:35 Nicotine (*Pbkc) 21 Mg Patch TRANSDERM 1 patch DAILY DEUCE Administration Ondansetron HCl 4 mg 01/29/20 10:05 Ondansetron Hcl Odt 4 Mg Tablet PO Q6H PRN Nausea And Vomiting Polyethylene Glycol 17 gm 01/22/20 19:54 Polyethylene Glycol 3350 17 Gm Powd.Pack PO DAILY PRN Constipation Radiology Results: ITS Impressions Forearm X-Ray 01/26/20 07:08 IMPRESSION: 1. Negative left forearm radiographs. Progress Note: A&P Assessment and Plan (1) Defiant behavior: Code(s): R46.89 - Other symptoms and signs involving appearance and behavior Status: Acute (2) Medical non-compliance: Code(s): Z91.19 - Patient's noncompliance with other medical treatment and regimen Status: Acute (3) Prediabetes: Code(s): R73.03 - Prediabetes Status: Acute (4) Right carotid artery occlusion: Code(s): I65.21 - Occlusion and stenosis of right carotid artery Status: Acute (5) Left hemiparesis: Code(s): G81.94 - Hemiplegia, unspecifi
[2020-01-31 14:00] VITALS: BP 153/76; PULSE 87; RESP 22; TEMP 36.5; O2SAT 96
--- NOTE | 2020-01-31 14:55 | PCPTNOTE ---
Attempted to see patient for Physical Therapy this PM. Patient was laying in bed and stated that he was tired and did not want to do therapy.
--- NOTE | 2020-01-31 16:21 | PCPTNOTE ---
Patient refused treatment this session due to being to tired.
[2020-01-31] MEDS: HYDROcodone/acetaminophen (*CRX) 7.5-325 MG TABLET 1 TAB PO (19:54)
[2020-01-31] MEDS: ATORVASTATIN 40 MG TABLET 80 MG PO (19:54)
[2020-01-31 22:00] VITALS: BP 118/54; PULSE 80; RESP 18; TEMP 36.4; O2SAT 96
[2020-02-01 06:00] VITALS: BP 147/67; PULSE 65; RESP 20; TEMP 36.7; O2SAT 97
[2020-02-01 08:00] VITALS: PULSE 65; RESP 20; O2SAT 97
[2020-02-01] MEDS: ESCITALOPRAM OXALATE 10 MG TABLET PO (08:46)
[2020-02-01] MEDS: ASPIRIN 325 MG ENTERIC TABLET PO (08:46)
[2020-02-01] MEDS: NICOTINE (*PBKC) 21 MG PATCH 1 PATCH TRANSDERM (08:46)
[2020-02-01] MEDS: ALPRAZolam (*CRX) 0.5 MG TABLET PO ×2 (08:50→20:17)
[2020-02-01] MEDS: HYDROcodone/acetaminophen (*CRX) 7.5-325 MG TABLET 1 TAB PO ×2 (08:50→20:18)
--- NOTE | 2020-02-01 13:42 | WPDREHABHP ---
H&P: HPI History of Present Illness Date/Time: 02/01/20 13:42 54 years old right-handed male with right acute hemispheric stroke and clinical left hemiparesis in addition to the comorbid conditions of hypertriglyceridemia admitted to the hospital on the rehab floor and has been involved in a physical therapy and occupational therapy on a regular basis remains afebrile and normotensive Chief complaint: Acute CVA Narrative: Florentin Marie is a 54 year old male Review of Systems Review of Systems All systems reviewed & are unremarkable except as noted in HPI and below PMFSH Past Medical History Medical History (Updated 01/30/20 @ 10:46 by Marko Hoskins MD) Defiant behavior Ureterolithiasis Family History Family History Father Cerebrovascular accident Sibling Cerebrovascular accident Social History Social History Smoking status: Current every day smoker Tobacco type: cigarettes Alcohol intake: former Substance use: current Other substance usage details: urine test positive for opioids and methamphetamine Gender identity (if verbalized by the patient): Male Spiritual care concerns: No Meds Home Medications and Allergies Home Medications Medication Instructions Recorded Confirmed Type acetaminophen 650 mg PO Q4H PRN 01/22/20 01/22/20 History aspirin [Adult Aspirin EC Low 325 mg PO DAILY 01/22/20 01/22/20 History Strength] atorvastatin 80 mg PO HS 01/22/20 01/22/20 History enoxaparin [Lovenox] 40 mg SUBCUT DAILY 01/22/20 01/22/20 History ibuprofen 600 mg PO Q6H PRN 01/22/20 01/22/20 History nicotine [Nicoderm CQ] 1 patch TRANSDERMAL DAILY 01/22/20 01/22/20 History olanzapine [Zyprexa] 2.5 mg PO BID PRN 01/22/20 01/22/20 History polyethylene glycol 3350 [Miralax] 17 g PO DAILY PRN 01/22/20 01/22/20 History Allergies Allergy/AdvReac Type Severity Reaction Status Date / Time No Known Allergies Allergy Verified 01/22/20 19:57 Vital Signs Vital Signs - 24 hr 01/31/20 14:00 01/31/20 22:00 02/01/20 06:00 Temperature 36.5 C 36.4 C L 36.7 C Pulse Rate 87 80 65 Respiratory Rate 22 H 18 20 Blood Pressure 153/76 H 118/54 L 147/67 H Pulse Oximetry 96 96 97 02/01/20 08:00 Temperature Pulse Rate 65 Respiratory Rate 20 Blood Pressure Pulse Oximetry 97 Exam Narrative Exam Narrative: exam today reveals him to be awake alert cooperative in no obvious acute distress head normocephalic with no cranial bruit ear nose throat examination normal. Heart regular with no murmur. Lungs clear to auscultation with no rhonchi or crepitation. Abdomen is soft with no organomegaly and normal bowel sounds. Neurological examination essentially unchanged. Assessment and Plan Assessment and plan (1) Defiant behavior: Code(s): R46.89 - Other symptoms and signs involving appearance and behavior Status: Acute (2) Left hemiparesis: Code(s): G81.94 - Hemiplegia, unspecified affecting left nondominant side Status: Acute (3) Medical non-compliance: Code(s): Z91.19 - Patient's noncompliance with other medical treatment and regimen Status: Acute (4) Prediabetes: Code(s): R73.03 - Prediabetes Status: Acute (5) Right carotid artery occlusion: Code(s): I65.21 - Occlusion and stenosis of right carotid artery Status: Acute (6) Stroke: Code(s): I63.9 - Cerebral infarction, unspecified Status: Acute (7) Ureterolithiasis: Code(s): N20.1 - Calculus of ureter Status: Acute Additional Plan Continue with the treatment as such
[2020-02-01 14:00] VITALS: BP 145/79; PULSE 87; RESP 22; TEMP 36.8; O2SAT 96
[2020-02-01] MEDS: ATORVASTATIN 40 MG TABLET 80 MG PO (20:21)
[2020-02-01 22:00] VITALS: BP 134/66; PULSE 82; RESP 17; TEMP 36.2; O2SAT 97
[2020-02-02 06:00] VITALS: BP 141/65; PULSE 57; RESP 18; TEMP 36; O2SAT 96
[2020-02-02 08:00] VITALS: PULSE 57; RESP 18; O2SAT 96
[2020-02-02] MEDS: ESCITALOPRAM OXALATE 10 MG TABLET PO (08:50)
[2020-02-02] MEDS: ASPIRIN 325 MG ENTERIC TABLET PO (08:50)
[2020-02-02] MEDS: NICOTINE (*PBKC) 21 MG PATCH 1 PATCH TRANSDERM (08:50)
[2020-02-02] MEDS: ALPRAZolam (*CRX) 0.5 MG TABLET PO (13:26)
[2020-02-02] MEDS: HYDROcodone/acetaminophen (*CRX) 7.5-325 MG TABLET 1 TAB PO (13:26)
--- NOTE | 2020-02-05 12:13 | PM.DS ---
DS: Admitting Diagnosis Admitting Diagnosis Admitting Diagnosis: Acute CVA 54 years old right-handed male was admitted to the acute rehab of [facility] for diagnosis of left hemiparesis involving left upper extremity more than lower extremity along with slurring of speech and numbness. his initial investigation included the CT scan of the head which was suggestive of acute infarct in right middle cerebral artery distribution CT scan of cervical spine was negative. he received aspirin and was transferred to [facility] for further care where neurologist evaluated the patient , his MRI was positive for acute right hemispheric infarction without hemorrhage or significant mass effect, carotid study documented complete occlusion of right internal carotid artery with minimal atherosclerotic plaque on the left side, carotid MRA a demonstrated very minimal flow within right internal carotid artery and essentially functional occlusion of cervical right carotid artery. he was continued on aspirin and statin therapy and treated for left-sided hemiparesis with dysarthria he was noted to be prediabetic with hemoglobin A1c of 6.0. he was discharged to us on Lovenox for DVT prophylaxis. during the hospitalization here he was actively involved in the physical therapy and occupational therapy though he continued to have defiant behavior. he was able to ambulate up to 150ft with contact guard with the hemic cane assistive device and his general physical examination was stable he was discharged to his home with home health instruction .during the entire hospitalization he had no fall or injuries his condition definitely improved and at the time of discharge he was independent in eating ,oral hygiene ,toileting required supervision for bathing partial assistance, for upper body dressing supervision, for lower body dressing, he was independent for footwear rolling in ,bed sit to lying, lying to sit, required onlyset up , chair transfer set up or clean up ,toilet transfer supervision, cartransfer set up or clean up ,walking 10ft supervision, walking 50ft with 2 turns required supervision, walking 150ft required supervision, ,walking 10ft on uneven surfaces required supervision, required partial assistance for curb or step, required supervision 4 steps, and 12 steps and also required supervision for picking up object. DS: Summary Time Spent with Patient Time attestation: Total time spent providing and/or coordinating discharge services: Discharge Plan Discharge Attending physician on discharge: Marko Hoskins Discharging Clinician: Jose Jordan Patient Disposition: Home Health Service Activity: no driving Diet: heart healthy Discharge Instructions: Per Care Coordination: [facility] will follow at discharge for RN and PT/OT eval and treat. [facility] can be contacted at [phone]. Nursing please fax discharge paperwork to [phone]. Patient Instructions: Antibiotic Form, How to Stop Smoking (DC), Heart Healthy Diet (ED), Pain Management (GEN), Stroke (GEN) Stand Alone Forms: General Discharge Information Follow-up/Referrals: Primary Care Provider [Other] (Follow up with your primary care provider in the coming 2-4 weeks to schedule a follow up appointment.) Dr. Jl Rodríguez (neurology) [Other] - Call for Appointment (Follow up as an outpatient in 1 month.) Discharge Medications: New alprazolam 0.5 mg Tablet 0.5 mg PO BID PRN (Reason: Anxiety) Qty: 20 RF: 0 hydrocodone-acetaminophen 7.5-325 mg Tablet 1 tab PO Q6H PRN (Reason: Pain Rated 7-10) Qty: 30 RF: 0 escitalopram oxalate 10 mg Tablet 10 mg PO QAM Qty: 30 RF: 0 Continued atorvastatin 80 mg Tablet 80 mg PO HS Qty: 30 RF: 0 acetaminophen 325 mg Tablet 650 mg PO Q4H PRN (Reason: Pain, Mild) Qty: 50 RF: 0 polyethylene glycol 3350 [Miralax] 17 gram Powder In Packet 17 g PO DAILY PRN (Reason: Constipation) Qty:
== END 2020-02-02 14:02 | disposition home health service (06) | DRG 57 ==
PROVIDERS: Admitting Provider Psychiatry & Neurology Neurology; Visit Provider Psychiatry & Neurology Neurology
DX: I69.354 Hemiplegia and hemiparesis following cerebral infarction affecting left non-dominant side (principal); N20.1 Calculus of ureter; I69.322 Dysarthria following cerebral infarction; I69.392 Facial weakness following cerebral infarction; I69.398 Other sequelae of cerebral infarction; H53.40 Unspecified visual field defects; F17.210 Nicotine dependence, cigarettes, uncomplicated; I65.21 Occlusion and stenosis of right carotid artery; M47.812 Spondylosis without myelopathy or radiculopathy, cervical region; M19.012 Primary osteoarthritis, left shoulder; R73.03 Prediabetes; Z91.19 Patient's noncompliance with other medical treatment and regimen; F41.8 Other specified anxiety disorders; E78.1 Pure hyperglyceridemia
CPT/HCPCS: 36415; 73090; 80048; 80061; 85025; 92507; 92523; 93005; 97110; 97112; 97116; 97161; 97165; 97530; 97535; 97542; A9270; J1650